=== PATIENT | female | born 1985 | race Caucasian/White ===

== ENCOUNTER 2018-05-17 02:19 | Emergency (ER) | payer MEDICAID, OTHER ==
[2018-05-17 02:33] VITALS: BP 110/80
[2018-05-17 03:05] LABS: Basophils # (Auto) 0.1 K/mm3 (0.0-0.1); Basophils % (Auto) 1.3 % (0.0-1.8); Eosinophils # (Auto) 0.1 K/mm3 (0.0-0.4); Eosinophils % (Auto) 1.9 % (0.0-4.3); Hematocrit 38.4 % (30.3-42.9); Hemoglobin 12.9 gm/dl (10.1-14.3); Lymphocytes % (Auto) 38.4 % (13.4-35.0); Mean Corpuscular HGB Conc 34 % (30-34); Mean Corpuscular Volume 91 fl (79-97); Monocytes # (Auto) 0.7 K/mm3 (0.0-0.8); Monocytes % (Auto) 8.8 % (0.0-7.3); Platelet Count 345 K/mm3 (140-440); Red Blood Count 4.24 M/mm3 (3.65-5.03); Red Cell Distribution Width 14.7 % (13.2-15.2)
== END 2018-05-17 05:00 | disposition left against medical advice (07) ==
LOC: ED 02:19
DX: O20.9 Hemorrhage in early pregnancy, unspecified (principal); Z3A.01 Less than 8 weeks gestation of pregnancy; Z53.21 Procedure and treatment not carried out due to patient leaving prior to being seen by health care provider
CPT/HCPCS: 36415; 84702; 85025; 86850; 86900; 86901

== ENCOUNTER 2021-03-01 05:54 | Emergency (ER) | payer MEDICAID, OTHER ==
--- NOTE | 2021-03-01 07:03 | Emergency Department Report ---
ED Upper Extremity Inj HPI - General Chief Complaint: Extremity Injury, Upper Stated Complaint: POSS BROKEN HAND Time Seen by Provider: 03/01/21 06:42 Source: patient Mode of arrival: Ambulatory Limitations: No Limitations - History of Present Illness Initial Comments: 35-year-old female presents to the ER to today with complaints of crush injury to her right thumb. Onset was earlier this morning. She states that she was getting out the door when she accidentally slammed her thumb in the door. She complains of pain to her right thumb but also diffusely to her hand and radiates up into her right upper arm. She reports difficulty moving her thumb due to the pain. She reports bruising but no obvious open wounds or swelling. She is right-hand dominant. MD Complaint: Injury to:: right -: This morning - Related Data Previous Rx's Medication Instructions Recorded Last Taken Type Acetaminophen/Codeine [Tylenol 1 tab PO Q6H PRN #12 tab 03/01/21 Unknown Rx /Codeine # 3 tab] Ibuprofen [Motrin] 600 mg PO Q8H PRN #30 tablet 03/01/21 Unknown Rx Allergies Allergy/AdvReac Type Severity Reaction Status Date / Time No Known Allergies Allergy Verified 07/09/15 07:21 ED Review of Systems ROS: Stated complaint: POSS BROKEN HAND Other details as noted in HPI Comment: All other systems reviewed and negative Constitutional: denies: chills, fever Eyes: denies: eye pain, eye discharge, vision change ENT: denies: ear pain, throat pain, dental pain, hearing loss, epistaxis, congestion Respiratory: denies: cough, shortness of breath, SOB with exertion, SOB at rest, wheezing Cardiovascular: denies: chest pain, palpitations Gastrointestinal: denies: abdominal pain, nausea, vomiting, diarrhea, constipation, hematemesis, melena, hematochezia Genitourinary: denies: urgency, dysuria, frequency, hematuria, discharge, abnormal menses, dyspareunia Musculoskeletal: joint swelling, arthralgia Skin: denies: rash, lesions, change in color, change in hair/nails, pruritus Neurological: denies: headache, weakness, numbness, paresthesias, confusion, abnormal gait, vertigo Psychiatric: denies: anxiety, depression, auditory hallucinations, visual hallucinations, homicidal thoughts, suicidal thoughts Hematological/Lymphatic: denies: easy bleeding, easy bruising, swollen glands ED Past Medical Hx - Past Medical History Previous Medical History?: Yes Hx Hypertension: No Hx Diabetes: No Hx Deep Vein Thrombosis: No Hx Renal Disease: No Hx Sickle Cell Disease: No Hx Seizures: No Hx Asthma: Yes (last attack 01/2015) Hx HIV: No - Surgical History Past Surgical History?: Yes Additional Surgical History: x2 - Social History Smoking Status: Never Smoker Substance Use Type: None - Medications Home Medications: Home Medications Medication Instructions Recorded Confirmed Last Taken Type Acetaminophen/Codeine [Tylenol 1 tab PO Q6H PRN #12 tab 03/01/21 Unknown Rx /Codeine # 3 tab] Ibuprofen [Motrin] 600 mg PO Q8H PRN #30 tablet 03/01/21 Unknown Rx ED Physical Exam - General Limitations: No Limitations General appearance: alert, in no apparent distress - Head Head exam: Present: atraumatic, normocephalic, normal inspection - Eye Eye exam: Present: normal appearance, PERRL, EOMI Pupils: Present: normal accommodation - Neck Neck exam: Present: normal inspection, full ROM - Respiratory Respiratory exam: Present: normal lung sounds bilaterally. Absent: respiratory distress, wheezes, rales, rhonchi - Cardiovascular Cardiovascular Exam: Present: regular rate, normal rhythm, normal heart sounds - Expanded Upper Extremity Exam Right Hand Wrist exam: Present: tenderness (Diffuse tenderness to palpation along the first right metacarpal, base of thumb and diffusely into the right thumb; including tenderness to palpation to proximal aspect of the right index finger and over the second metatarsal), subungual hematoma (Mild, proximal aspect of the right thumb). Absent: full ROM (Patient refuses to attempt range of motion of her thumb and right index finger due to pain), swelling, abrasion, laceration, deformity, crepidus, dislocation, erythema, amputation, nail avulsion Neurosensory exam: Present: radial nerve intact, ulnar nerve intact, median nerve intact Vascular: Present: normal capillary refill, radial pulse (Normal). Absent: vascular compromise - Neurological Exam Neurological exam: Present: alert, oriented X3, CN II-XII intact, normal gait - Psychiatric Psychiatric exam: Present: normal affect, normal mood - Skin Skin exam: Present: intact ED Course Vital Signs 03/01/21 03/01/21 06:24 07:55 Temperature 99.0 F 97.8 F Pulse Rate 85 76 Respiratory 18 16 Rate Blood Pressure 129/86 Blood Pressure 119/80 [Right] O2 Sat by Pulse 96 99 Oximetry ED Medical Decision Making - Radiology Data Radiology results: report reviewed Patient: ARIEL ANDRADE MR#: [id number] : 1985 Acct:[id number] Age/Sex: 35 / F ADM Date: 03/01/21 Loc: ED Attending Dr: Ordering Physician: GAURI BLAKE Date of Service: 03/01/21 Procedure(s): XR hand 3+V RT Accession Number(s): [id number] cc: GAURI BLAKE Fluoro Time In Minutes: Right hand 3 views INDICATION: Injury FINDINGS: MCP joints and IP joints appear normal. No acute fracture. Signer Name: Giovanni Aranda MD Signed: 03/01/2021 7:10 AM Workstation Name: [id number] Transcribed By: CW Dictated By: DALLAS ARANDA MD Electronically Authenticated By: DALLAS ARANDA MD Signed Date/Time: 03/01/21709 DD/ 9 TD/TT: - Medical Decision Making X-ray of the hand shows no acute abnormality. Patient subungual hematoma to right thumb was drained using cautery device. Wound care discussed with patient. Thumb spica Velcro splint applied. Discussed x-ray results with patient. Discussed treatment plan with patient. Patient given follow-up information to Ortho and PCP. Patient expressed understanding agree with plan. Patient stable at time of discharge. Critical care attestation.: If time is entered above; I have spent that time in minutes in the direct care of this critically ill patient, excluding procedure time. ED Disposition Clinical Impression: Crushing injury of hand, Subungual hematoma of fingernail Disposition: HOME / SELF CARE / HOMELESS Is pt being admited?: No Does the pt Need Aspirin: No Condition: Stable Instructions: How to Use Cold Therapy, [id number], Subungual Hematoma, [id number], Contusion, [id number], Crush Injury of the Hand, [id number] Additional Instructions: I recommend using the thumb spica splint as discussed. Continue applying ice to area to help with pain and swelling. Keep nail cleain with soap and water, dry well and then apply thin layer or neosporin after each cleaning. Take the motrin and tylenol 3 as prescribed to help with pain. Follow up with PCP and or ortho in 1 week if symptoms persist. Return to ED if worse. Prescriptions: Ibuprofen [Motrin] 600 mg PO Q8H PRN #30 tablet PRN Reason: Pain Acetaminophen/Codeine [Tylenol /Codeine # 3 tab] 1 tab PO Q6H PRN #12 tab PRN Reason: Pain , Severe (7-10) Referrals: MARILU WATTS MD [Staff Physician] - 3-5 Days MARILIN SEWELL MD [Staff Physician] - 3-5 Days Forms: Work/School Release Form(ED) Time of Disposition: 07:27
--- NOTE | 2021-03-01 07:15 | XRay Report ---
Right hand 3 views INDICATION: Injury FINDINGS: MCP joints and IP joints appear normal. No acute fracture. Signer Name: Giovanni Aranda MD Signed: 03/01/2021 7:10 AM Workstation Name: [id number]
[2021-03-01] MEDS ORDERED: IBUPROFEN 600 MG TAB PO ONE (07:23)
[2021-03-01 08:02] VITALS: BP 119/80
== END 2021-03-01 08:00 | disposition home or self-care (01) ==
LOC: ED 05:54
DX: S67.21XA Crushing injury of right hand, initial encounter (principal); S60.111A Contusion of right thumb with damage to nail, initial encounter; J45.909 Unspecified asthma, uncomplicated; Z98.890 Other specified postprocedural states; X58.XXXA Exposure to other specified factors, initial encounter; Y93.89 Activity, other specified; Y92.89 Other specified places as the place of occurrence of the external cause; Y99.8 Other external cause status
CPT/HCPCS: 99283

== ENCOUNTER 2021-04-05 10:21 | Emergency (ER) | payer MEDICAID ==
--- NOTE | 2021-04-05 10:41 | Emergency Department Report ---
ED Rash HPI - HPI Chief Complaint: Skin/Abscess/Foreign Body Stated Complaint: BED BUGS Time Seen by Provider: 04/05/21 10:39 Location: Other Suspected Cause: Other Rash Symptoms: Yes Itching, Yes Choking Sensation, No Facial Swelling, No Tongue/Oral Swelling, No Breathing Difficulties, No Wheezing/Dyspnea, No Peeling, No Blistering, No Fever, No Lightheaded, No Malaise, No Myalgias Severity: mild Other History: 35 yo comes to ER with rash consistent with bed bugs p staying in motel. generalized. macular puritic. no open lesions. no oral or ocular lesions. abc intact. vss. ambulatory and nad ED Review of Systems ROS: Stated complaint: BED BUGS Other details as noted in HPI Comment: All other systems reviewed and negative ED Past Medical Hx - Past Medical History Hx Hypertension: No Hx Diabetes: No Hx Deep Vein Thrombosis: No Hx Renal Disease: No Hx Sickle Cell Disease: No Hx Seizures: No Hx Asthma: Yes (last attack 01/2015) Hx HIV: No - Surgical History Additional Surgical History: x2 - Family History Family history: no significant - Social History Smoking Status: Never Smoker Substance Use Type: None - Medications Home Medications: Home Medications Medication Instructions Recorded Confirmed Last Taken Type Permethrin 5% [Acticin 5% CREAM] 1 applicatio TP ONCE #1 tube 04/05/21 Unknown Rx Rash Exam - Exam General: Vital signs noted. No distress. Alert and acting appropriately. HEENT: No Periorbital Edema, No Conjuctival Injection, No Chemosis, No Perioral Edema, No Tongue Edema, No Uvular Edema, No Compromised Airway, No Drooling Lungs: Yes Good Air Exchange (Normal Breath Sounds), No Wheezes, No Ronchi, No Stridor, No Cough, No Labored Respirations, No Retractions, No Use of Accessory Muscles, No Other Abnormal Lung Sounds Heart: Yes Regular, No Murmur Skin: Yes Other Other: Positive: Abdomen Normal, Neurologic Normal, Musculoskeletal Normal ED Course Vital Signs 04/05/21 10:32 Temperature 98.0 F Pulse Rate 85 Respiratory 18 Rate Blood Pressure 109/79 O2 Sat by Pulse 99 Oximetry ED Medical Decision Making - Medical Decision Making generalized rash consistent with bedbugs abc intact no allergen Vital Signs 04/05/21 10:32 Temperature 98.0 F Pulse Rate 85 Respiratory 18 Rate Blood Pressure 109/79 O2 Sat by Pulse 99 Oximetry - Differential Diagnosis bed bugs Critical care attestation.: If time is entered above; I have spent that time in minutes in the direct care of this critically ill patient, excluding procedure time. ED Disposition Clinical Impression: Bed bug bite Disposition: 01 HOME / SELF CARE / HOMELESS Is pt being admited?: No Does the pt Need Aspirin: No Condition: Stable Instructions: Bedbugs, [id number] Additional Instructions: clean car/clothes/home med as ordered follow up pcp referral below Prescriptions: Permethrin 5% [Acticin 5% CREAM] 1 applicatio TP ONCE #1 tube Referrals: NOEMÍ YUNG MD [Staff Physician] - 3-5 Days Time of Disposition: 10:54
[2021-04-05 11:18] VITALS: BP 119/83
== END 2021-04-05 11:23 | disposition home or self-care (01) ==
LOC: ED 10:21
DX: R21 Rash and other nonspecific skin eruption (principal); T14.8XXA Other injury of unspecified body region, initial encounter; W57.XXXA Bitten or stung by nonvenomous insect and other nonvenomous arthropods, initial encounter; Y93.89 Activity, other specified; Y92.89 Other specified places as the place of occurrence of the external cause; Y99.8 Other external cause status; J45.909 Unspecified asthma, uncomplicated
CPT/HCPCS: 99282